=== PATIENT | male | born 1960 | race Two or more races ===

== ENCOUNTER → 2018-06-15 12:33 | Outpatient (CLI) | payer SELFPAY ==
[~2018-06-15 12:33] MED LIST: DIOVAN80 MG PO
[2018-06-16 09:23] VITALS: BMI 28.5
== END | disposition home or self-care (01) ==
LOC: D.LAB 12:33
DX: N39.0 Urinary tract infection, site not specified (principal); N20.0 Calculus of kidney

== ENCOUNTER → 2018-06-16 08:02 | Outpatient (CLI) | payer SELFPAY ==
[~2018-06-16] VITALS: Ht 180.3 cm; Wt 92.7 kg
[2018-06-16 09:23] VITALS: BP 152/101; Ht 180.3 cm; Wt 92.7 kg
[2018-06-16 10:20] LABS: BASOPHILS 0.2 % (0-2); EOSINOPHILS 0.6 % (0-7); HEMATOCRIT 39.5 % (42.0-54.0); HEMOGLOBIN 13.8 g/dL (13.5-17.5); IMMATURE GRANULOCYTES 0.2 % (0-5); LYMPHOCYTES 30.3 % (15-50); MCH 28.8 pg (26.0-34.0); MCHC 34.9 g/dL (31.0-37.0); MCV 82.3 fL (80.0-100.0); MEAN PLATELET VOLUME 10.7 fL (7.4-10.4); MONOCYTES 9.1 % (2-11); NEUTROPHILS 59.6 % (40-80); PLATELET COUNT 174 10x3/uL (130-400); RDW 14.2 % (11.5-14.5); WBC 4.9 10x3/uL (4.8-10.8)
== END | disposition home or self-care (01) ==
LOC: D.US 08:02 → EDSTATUS 10:30 → D.OPS 10:45
PROVIDERS: Anesthesiology
DX: R97.20 Elevated prostate specific antigen [PSA] (principal)